=== PATIENT | male | born 2000 | race Caucasian/White ===

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

== ENCOUNTER 2019-04-04 22:45 | Inpatient (IN) | payer OTHER ==
[~2019-04-04] VITALS: Ht 172.7 cm; Wt 51.0 kg
[2019-04-04 22:50] VITALS: Ht 172.7 cm; Wt 51.0 kg
--- NOTE | 2019-04-04 23:39 | NUR ---
PT PRESENTS TO ED WITH C/O ABDOMINAL AND SHOULDER PAIN WITH N/V/C. PT STATES SX BEGAN 2 DAYS AGO. PT STATES THAT HE STARTS TO FEEL THIS WAY "WHEN IM ABOUT TO GO INTO DKA". PT STATES THAT HE FEELS NAUSEOUS AND HAS VOMITED X2 TODAY. PT HAS RLQ PAIN THAT IS NONTENDER. PT STATES HE HAS NOT HAD A BOWEL MOVEMENT IN 2 DAYS. PT HAS POSITIVE BOWEL SOUNDS IN ALL 4 QUADRANTS. PER MOM PT HAS INCREASED URINATION. PT LIPS APPEAR DRY HOWEVER OTHER SKIN SIGNS WNL. PT CONNECTED TO FULL CM AND PULSE OX MONITORS. PT AXO X4. PT SPEAKING IN CLEAR AND FULL SENTENCES. PT RESP E/U. NAD AT THIS TIME. FAMILY AT BEDSIDE
[2019-04-04 23:47] LABS: BASOPHIL % 0.4 % (0-2); PLATELET COUNT 270 x10^3mcL (130-400); RED CELL DISTRIBUTION WIDTH 13.2 % (11.5-14.5)
[2019-04-05] VITALS (9 sets, daily range): BP systolic 91–116; BP diastolic 47–72
--- NOTE | 2019-04-05 | NUR ---
PT REPORTS HE IS STARTING TO FEEL BETTER. PT AWARE WE NEED URINE AT THIS TIME AND STATES HE WILL GIVE IT WHEN HE CAN
[2019-04-05 00:14] LABS: ALKALINE PHOSPHATASE 134 U/L (46-116); ALT/SGPT 23 U/L (16-63); AST/SGOT 5 U/L (15-37); BILIRUBIN TOTAL 0.51 mg/dL (0.20-1.00); CALCIUM 8.8 mg/dL (8.5-10.1); CHLORIDE SERUM 95 mmol/L (98-107); CREATININE SERUM 1.3 mg/dL (0.7-1.3); GFR1 > 60 mL/min; GLUCOSE SERUM 335 mg/dL (74-106); POTASSIUM SERUM 4.3 mmol/L (3.5-5.1); SODIUM SERUM 134 mmol/L (136-145)
[2019-04-05 00:15] LABS: TOTAL PROTEIN, SERUM 8.5 g/dL (6.4-8.2)
[2019-04-05 00:16] LABS: CARBON DIOXIDE 9.9 mmol/L (21-32)
--- NOTE | 2019-04-05 00:37 | NUR ---
MD MADE AWARE OF NEW BLOOD SUGAR 240, REPORTS THAT HE WILL CHANGE ORDER TO 4 UNITS OF INSULIN.
--- NOTE | 2019-04-05 01:44 | NUR ---
RESIDENT AT BEDSIDE REQUESTING TO START INSULIN DRIP. RESIDENT INFORMED IT IS AN INCOMPLETE ORDER CALLED PHARMACY AND PHARMACY STATES THAT SHE NEEDS TO FIX ORDER AND PUT IN THE PROTOCOL MD AWARE. ATTEMPTING TO CHANGE ORDER TO START INSULIN DRIP
--- NOTE | 2019-04-05 01:56 | NUR ---
PER MD AMBROCIO DO NOT ADMINISTER INSULIN DRIP AT THIS TIME PER PT LATEST BLOOD SUGAR OF 159. NO NEW ORDERS AT THIS TIME
--- NOTE | 2019-04-05 02:10 | NUR ---
PT STILL AXO X4. PT SPEAKING IN CLEAR AND FULL SENTENCES. PT CONVERSING WITH GIRLFRIEND AT [facility]. PT DENIES ANY PAIN AT THIS TIME. WILL CONTINUE TO MONITOR
[2019-04-05 02:34] LABS: UA SPECIFIC GRAVITY >=1.030 (1.005-1.035); microscopic required? YES; urine erythrocyte TRACE (NEGATIVE)
--- NOTE | 2019-04-05 02:45 | NUR ---
RECIEVED REPORT FROM LIVE HANGER. NURSING UPDATES. POC DISCUSSED. AWAITING PT ARRIVAL.
--- NOTE | 2019-04-05 02:45 | NUR ---
REPORT GIVEN TO SHUKRI CONDE. ALL QUESTIONS AND CONCERNS ADDRESSED AT THIS TIME
--- NOTE | 2019-04-05 03:02 | NUR ---
PT ARRIVED FROM ED ACCOMPANIED BY RN AND TECH. SEE SHIFT ASSESSMENT FOR ASSESSMENT. TOA 0305. HR 106. O2 100. BP 116/65(81). TEMP 98.2. RR 16. A&OX4. SPEECH CLEAR AND APPROPRIATE. LUNG SOUNDS CLEAR ON RA. PULSES MOD BUE& BLE. CAP REFILL < 3 SEC. NO EDEMA NOTED. SINUS TACHY HR 106. SKIN C/D/I. PT VOIDS TO URINAL. BS ACTIVE X4. ABD SOFT AND FLAT. DENIES N/V. IV D5 1/2NS @ 200ML/HR W/ INSULIN @ 0.05KG/U/HR INFUSING. BS 222. DR DESIR NOTIFIED. GF @ BEDSIDE. NO S/S OF DISTRESS.
[2019-04-05 03:07] LABS: AMPHETAMINE QUAL UR NONE DETECTED (See below)
--- NOTE | 2019-04-05 03:18 | NUR ---
TALKED TO DR KARLEE ROGERS. NOTIFIED OF BS 222. NOTIFIED NOT TO START INSULIN DRIP AND WAIT FOR VBG RESULTS AND TO START N/S @ 100ML/HR.
--- NOTE | 2019-04-05 03:28 | NUR ---
NOTIFIED PER DR DESIR TO START DKA PROTOCOL. START INSULIN DRIP W/ D5 1/2 NS.
[2019-04-05 04:11] LABS: CALCIUM 8.3 mg/dL (8.5-10.1); CHLORIDE SERUM 99 mmol/L (98-107); CREATININE SERUM 1.1 mg/dL (0.7-1.3); GFR1 > 60 mL/min; GLUCOSE SERUM 289 mg/dL (74-106); MAGNESIUM 2.1 mg/dL (1.8-2.4); PHOSPHOROUS 3.3 mg/dL (2.5-4.9); POTASSIUM SERUM 4.7 mmol/L (3.5-5.1); SODIUM SERUM 134 mmol/L (136-145)
--- NOTE | 2019-04-05 04:18 | NUR ---
PT STATED N/V. ADMIN PRN ZOFRAN *(SEE MAR)*. PT TOLERATED WELL. WILL CONT TO MONITOR.
--- NOTE | 2019-04-05 05:34 | NUR ---
PT RESTING CALMLY IN BED. NO ACUTE CHANGES. PT STATES RELIEF FROM N/V.
--- NOTE | 2019-04-05 07:30 | NUR ---
Report received from ELTON Dias. patient arousable. denies complaints. resp even and nonlabored. sinus tach 101-105 bpm on monitor. breath sounds clear bilaterally. moves all extremities well. accucheck 198. left AC peripheral IV intact. noted D51/2 ns @ 100ml/hr. inuslin gtt at 2units/hr. pt tolerating well.
[2019-04-05 08:49] LABS: BASOPHIL % 0.2 % (0-2); PLATELET COUNT 251 x10^3mcL (130-400); RED CELL DISTRIBUTION WIDTH 13.3 % (11.5-14.5)
[2019-04-05 09:08] LABS: CALCIUM 7.9 mg/dL (8.5-10.1); CARBON DIOXIDE 12.2 mmol/L (21-32); CHLORIDE SERUM 104 mmol/L (98-107); CREATININE SERUM 1.1 mg/dL (0.7-1.3); GFR1 > 60 mL/min; GLUCOSE SERUM 186 mg/dL (74-106); MAGNESIUM 1.9 mg/dL (1.8-2.4); PHOSPHOROUS 2.1 mg/dL (2.5-4.9); POTASSIUM SERUM 3.7 mmol/L (3.5-5.1); SODIUM SERUM 135 mmol/L (136-145)
--- NOTE | 2019-04-05 09:30 | NUR ---
PATIENT ATE 100% OF BREAKFAST TRAY OFFERED, NO COMPLAINTS OF N/V/ DENIES PAIN OR DISCOMFORT. REPOSITIONS SELF IN BED.
[2019-04-05 12:04] LABS: CALCIUM 7.7 mg/dL (8.5-10.1); CARBON DIOXIDE 16.6 mmol/L (21-32); CHLORIDE SERUM 103 mmol/L (98-107); CREATININE SERUM 1.2 mg/dL (0.7-1.3); GFR1 > 60 mL/min; GLUCOSE SERUM 275 mg/dL (74-106); MAGNESIUM 1.9 mg/dL (1.8-2.4); PHOSPHOROUS 2.1 mg/dL (2.5-4.9); POTASSIUM SERUM 3.7 mmol/L (3.5-5.1); SODIUM SERUM 133 mmol/L (136-145)
--- NOTE | 2019-04-05 13:00 | NUR ---
PATIENT RESTING QUIETLY. ABLE TO TOLERATE OFFERED MEALS WITH NO COMPLAINTS OF N/V. AFEBRILE. ACCUCHECK 248. D51/2 NS HELD FOR 1 HOUR AND WILL REASSESS. NO ACUTE CHANGES OR COMPLAINTS NOTED. PATIENT SINUS RHYTHM/TACHY 95-107 WITH ACTIVITY.
[2019-04-05 16:31] LABS: CALCIUM 8.1 mg/dL (8.5-10.1); CARBON DIOXIDE 19.7 mmol/L (21-32); CHLORIDE SERUM 104 mmol/L (98-107); CREATININE SERUM 1.2 mg/dL (0.7-1.3); GFR1 > 60 mL/min; GLUCOSE SERUM 148 mg/dL (74-106); MAGNESIUM 1.8 mg/dL (1.8-2.4); PHOSPHOROUS 2.3 mg/dL (2.5-4.9); POTASSIUM SERUM 3.2 mmol/L (3.5-5.1); SODIUM SERUM 136 mmol/L (136-145)
--- NOTE | 2019-04-05 16:48 | NUR ---
D5 1/2 NS CHANGED TO 150ML/HR. ACCUCHECK 131. INSULIN GTT MAINTAINED AT 2.5 U/HR. PATIENT ALERT ORIENTED X 4. DENIES COMPLAINTS. ANION GAP CALCULATED 12.3.
--- NOTE | 2019-04-05 17:24 | NUR ---
PATIENT K+ 3.2, SINUS RHYTHM ON MONITOR. ASYMPTOMATIC. PAGED TO MAKE AWARE.
--- NOTE | 2019-04-05 19:30 | NUR ---
RECEIEVED REPORT FROM ELTON MORAN. NURSING UPDATES POC DISCUSSED. SEE SHIFT ASSESSMENT FOR ASSESSMENT.
--- NOTE | 2019-04-05 19:35 | NUR ---
REPORT GIVEN TO CASHIER TUBE ROOM WAREHOUSE LABORER. ANION 12.4. ACCUCHECK 157. D51/2 NS INFUSING AT 150ML/HR AND INSULIN GTT AT 2.5UNITS/HR. ALL QUESTIONS CONCERNS ADDRESSED.
--- NOTE | 2019-04-05 20:00 | NUR ---
DYE STAND LOADER @ BEDSIDE FOR LABS PER DKA PROTOCOL.
[2019-04-05 20:15] LABS: CALCIUM 8.1 mg/dL (8.5-10.1); CARBON DIOXIDE 21.9 mmol/L (21-32); CHLORIDE SERUM 103 mmol/L (98-107); GFR1 > 60 mL/min; GLUCOSE SERUM 155 mg/dL (74-106); MAGNESIUM 1.8 mg/dL (1.8-2.4); PHOSPHOROUS 2.3 mg/dL (2.5-4.9); POTASSIUM SERUM 3.4 mmol/L (3.5-5.1); SODIUM SERUM 135 mmol/L (136-145)
--- NOTE | 2019-04-05 23:00 | NUR ---
PT NOTED HUNGRY. CCHO DIET TOLERATED SANDWICH AND JELLO. NO S/S OF DISTRESS SEE CHART FOR BS.
--- NOTE | 2019-04-06 | NUR ---
FISHER EEL @ BEDSIDE FOR LAB DRAW PER DKA PROTOCOL.
--- NOTE | 2019-04-06 00:11 | NUR ---
LABTECH @ BEDSIDE FOR MIDNIGHT LABS FOR GAP PER DKA PROTOCOL.
[2019-04-06 00:25] LABS: CALCIUM 7.7 mg/dL (8.5-10.1); CARBON DIOXIDE 21.2 mmol/L (21-32); CHLORIDE SERUM 107 mmol/L (98-107); CREATININE SERUM 0.8 mg/dL (0.7-1.3); GFR1 > 60 mL/min; GLUCOSE SERUM 117 mg/dL (74-106); MAGNESIUM 1.7 mg/dL (1.8-2.4); PHOSPHOROUS 2.1 mg/dL (2.5-4.9); POTASSIUM SERUM 3.1 mmol/L (3.5-5.1); SODIUM SERUM 138 mmol/L (136-145)
--- NOTE | 2019-04-06 02:00 | NUR ---
PT W/ 2 CONSECUTIVE GAPS < 12. NOTIFIED DR MOSS. DKA PROTOCOL INITIATED. TITRATED OFF INSULIN DRIP AND D5 1/2 NS. N/S NOT TITRATED ON PER DR MOSS FOR PT TOLERATING PO WATER. WILL CONT TO MONITOR.
--- NOTE | 2019-04-06 02:45 | NUR ---
RANDOMLY CHECKED BS PER PREVIOUS BS TRENDING DOWN. BS 175. PT TOLERATING WELL. NO S/S OF HYPO/HYPERGLYCEMIA.
[2019-04-06 03:00] VITALS: BP 10/69
[2019-04-06 05:27] LABS: CALCIUM 7.8 mg/dL (8.5-10.1); CARBON DIOXIDE 19.1 mmol/L (21-32); CHLORIDE SERUM 106 mmol/L (98-107); CREATININE SERUM 0.8 mg/dL (0.7-1.3); GFR1 > 60 mL/min; GLUCOSE SERUM 211 mg/dL (74-106); MAGNESIUM 1.9 mg/dL (1.8-2.4); POTASSIUM SERUM 3.7 mmol/L (3.5-5.1); SODIUM SERUM 138 mmol/L (136-145)
[2019-04-06 05:40] LABS: BASOPHIL % 0.4 % (0-2); PLATELET COUNT 208 x10^3mcL (130-400); RED CELL DISTRIBUTION WIDTH 13.3 % (11.5-14.5)
--- NOTE | 2019-04-06 07:11 | NUR ---
RECEIVED REPORT FROM SHUKRI CONDE. PATIENT SLEEPING COMFORTABLY IN BED WITH ALL NEEDS MET. SALINE LOCK TO LFA IS PATENT AND INTACT. NO REDNESS OR PAIN. PT ON ROOM AIR. NO DISTRESS NOTED. ALL QUESTIONS AND CONCERNS ADDRESSED.
[2019-04-06 08:30] VITALS: BP 110/70
--- NOTE | 2019-04-06 09:13 | NUR ---
NOTICED POOLED LIQUID IN CORNER NEAR DOOR. PATIENT URINAL MUST HAVE SPILLED OVERNIGHT. SOAKED UP ALL LIQUID AND PAGED FOR EVS TO RUST.
--- NOTE | 2019-04-06 11:18 | NUR ---
DR LOBO AT BEDSIDE TO SEE AND ASSESS PATIENT.
--- NOTE | 2019-04-06 11:58 | NUR ---
IN TO SEE PATIENT AND CHECK BLOOD GLUCOSE. GLUCOSE IS 340. 12 UNITS REGULAR INSULIN ADMINISTERED PER SS. URINAL EMPTIED OF 900 ML CLEAR YELLOW URINE.
[2019-04-06 12:13] VITALS: BP 108/69
--- NOTE | 2019-04-06 13:24 | NUR ---
REPORT GIVEN TO ANGEL CONDE. ALL QUESTIONS AND CONCERNS ADDRESSED. ALL CARES ENDORSED. PT TO TRANSFER TO ROOM 232-A VIA WHEELCHAIR.
[2019-04-06 13:58] VITALS: BP 114/68
--- NOTE | 2019-04-06 14:19 | NUR ---
AT 1350 - RECEIVED PATIENT TRANSFER FROM ICU. PATIENT WAS ADMITTED WITH DKA. SETTLED IN BED, ORIENTED TO SURROUNDINGS AND PLACED ON CARDIAC MONITORING TELE # 17. PATIENT IS AWAKE, ALERT AND ORIENTED X 4. RESPIRATIONS REGULAR, NO SOB NOTED. IV SALINE LOCKED. MONITOR SHOWING SINUS RHYHTM; RATE 92. VS WNL. AT 1415 - PATIENT PROVIDED WITH SNACK. RESTING QUIETLY. DR VILLAFUERTE AT BEDSIDE, PLANNING TO DISCHARGE PATIENT TO HOME.
[2019-04-06 14:26] VITALS: BP 114/68
[2019-04-06] MEDS ORDERED: LANTI SQ (14:31)
[2019-04-06] MEDS ORDERED: HUMULIN R100 U/1 M1 SC (14:32)
[2019-04-06] MEDS ORDERED: HUMULIN R100 U/1 M1 SQ ×2 (14:34→14:35)
--- NOTE | 2019-04-06 15:17 | NUR ---
PRINTED DISCHARGE INSTRUCTIONS GIVEN AND EXPLAINED TO PATIENT. IV CATHETER REMOVED INTACT. PREPARED FOR DISCHARGE.
--- NOTE | 2019-04-06 15:28 | NUR ---
PATIENT WAS TAKEN OFF CARDIAC MONTIORING. DISCHARGED HOME WITH FAMILY. TAKEN TO CAR, AMBULATORY BY NURSE.
--- NOTE | 2019-04-06 15:33 | NUR ---
ADDITIONAL NOTE: PATIENT'S DISCHARGE INSULIN ORDER WAS FOR 10 UNITS LANTUS QHS. PATIENT REPROTED THAT HE TAKES 23 UNITS AT NIGHT. SPOKE WITH DR VILLAFUERTE WHO WENT AND SAW PATIENT AND CLARIFIED THAT PATIENT SHOULD CONTINUE TAKING 23 UNTIS AT NIGHT PRIOR TO ADMISSION.
[2019-04-07] MEDS ORDERED: HUMULIN R100 U/1 M1 SQ (11:25)
== END 2019-04-06 15:23 | disposition home or self-care (01) | DRG 420 ==
LOC: ED 22:45 → IC 04-05 00:25 → DU 04-06 13:43
PROVIDERS: Emergency Medicine; ADMIT General Practice
DX: E10.10 Type 1 diabetes mellitus with ketoacidosis without coma (principal); E83.51 Hypocalcemia; E87.1 Hypo-osmolality and hyponatremia; R00.0 Tachycardia, unspecified; Z79.4 Long term (current) use of insulin; Z68.1 Body mass index [BMI] 19.9 or less, adult
CPT/HCPCS: 82962; 87804; G0378; J1815; J2405; J7030; Q0092

== ENCOUNTER 2019-04-12 16:15 | Inpatient (IN) | payer OTHER ==
[~2019-04-12] VITALS: Ht 172.7 cm; Wt 51.9 kg
[~2019-04-12 16:15] MED LIST: HUMULIN R100 U/1 M1 SC; HUMULIN R100 U/1 M1 SQ; LANTI SQ
[2019-04-12 16:21] VITALS: Ht 172.7 cm; Wt 51.9 kg
--- NOTE | 2019-04-12 16:31 | NUR ---
PT BIB FAMILY WITH CO GEN ABD PAIN AND N/V. PT WAS HERE 03/04/19 AND WAS IN ICU FOR 3 DAYS AND DISCHARGED ON 03/06/19. PT SISTER STATES THAT ON 03/08/19 PT THEN BEGAN TO HAVE SAME SYMPTOMS WITH VOMTIING AND SISTER WAS TRYING TO BRING PT INTO HOSPITAL BUT PT WAS REFUSING. BLOOD SUGAR READING HI WHEN CHECKED TWICE. SISTER STATES THAT PT DOES CHECK BLOOD SUGARS AT HOME. PT HAS HX OF DKA. PT IS HOOKED UP TO FULL MONITORS, SIDE RAILS UP, 2 IVS BEING STARTED BY ELTON PORTILLO AND DANILO CONDE. WILL CONTINUE TO MONITOR.
--- NOTE | 2019-04-12 16:52 | NUR ---
PT GIVEN ICE CHIPS PER OK BY
[2019-04-12] MEDS ORDERED: LANTUS SOLOS100 U/M1 SQ (16:54)
[2019-04-12] MEDS ORDERED: HUMI SC (16:56)
--- NOTE | 2019-04-12 17:51 | NUR ---
PT STATES HES STARTING TO FEEL A LOT BETTER. STATES ABD PAIN IS SLOWLY GOING AWAY. PT CONTINUES TO EAT ICE CHIPS. FLUIDS RUNNING WITHNO INCIDENCE. FAMILY REMAINS AT BEDSIDE. PT HOOKED UP TO FULL MONITORS, SIDE RAILS UP, WILL CONTINUE TO MONITOR.
[2019-04-12 18:01] LABS: PLATELET COUNT 330 x10^3mcL (130-400); RED CELL DISTRIBUTION WIDTH 13.6 % (11.5-14.5)
[2019-04-12 18:07] LABS: T3 TOTAL 0.46 ng/mL
[2019-04-12 18:20] LABS: CK-MB 1.3 ng/mL (0-3.6); FREE T4 0.87 ng/dL (0.76-1.46); T4(THYROXINE) 7.1 ug/dL (4.7-13.3)
[2019-04-12 18:23] LABS: ALBUMIN 3.8 g/dL (3.4-5.0); ALKALINE PHOSPHATASE 183 U/L (46-116); ALT/SGPT 461 U/L (16-63); AST/SGOT 20 U/L (15-37); BILIRUBIN TOTAL 0.44 mg/dL (0.20-1.00); CALCIUM 8.8 mg/dL (8.5-10.1); CARBON DIOXIDE 11.4 mmol/L (21-32); CHLORIDE SERUM 99 mmol/L (98-107); CREATININE SERUM 1.6 mg/dL (0.7-1.3); GFR1 59 mL/min; POTASSIUM SERUM 4.6 mmol/L (3.5-5.1); SODIUM SERUM 140 mmol/L (136-145)
[2019-04-12 18:26] LABS: GLUCOSE SERUM 506 mg/dL (74-106); TOTAL PROTEIN, SERUM 8.6 g/dL (6.4-8.2)
[2019-04-12 18:36] LABS: C REACTIVE PROTEIN < 0.2 mg/dL (<=0.9)
--- NOTE | 2019-04-12 19:00 | NUR ---
PT STILL UNABLE TO PROVIDE URINE SAMPLE. URINAL AT BEDSIDE. DR TRAORE MADE AWARE
[2019-04-12 19:01] LABS: MONOCYTE 2 % (0-7); SEGMENTED NEUTROPHILS 80 % (37-75)
[2019-04-12 19:02] LABS: rbc morphology (normal/abnorm) NORMAL (NORMAL)
[2019-04-12 19:03] LABS: PLATELET MORPHOLOGY PLATELETS NORMAL
[2019-04-12 19:06] LABS: ERYTHROCYTE SED RATE 12 mm/hr (0-15)
--- NOTE | 2019-04-12 19:28 | NUR ---
REPORT GIVEN TO MYLES CONDE IN ICU FOR FURTHER CARE OF PT
--- NOTE | 2019-04-12 19:40 | NUR ---
RECEIVED PT FROM ER VIA [place]A ACCOMPANIED BY RN AND EMT. PT ABLE TO TRANSFER SELF INDEPENDENTLY FROM THE GURNEY ONTO THE BED. PT CONNECTED TO FULL CARIAC MONITOR, VITALS READING: HR 82, NIBP 120/75 MAP 92, RR 15, SPO2 100%. PT IS A/OX4. SPEECH IS CLEAR. ABLE TO MAKE NEEDS KNOWN/FOLLOW COMMANDS. BREATHING IS E/U ON RA. LUNGS SOUND CLEAR BILAT. SYMMETRICAL CHEST EXPANSION NOTED. S1/S2 HEART SOUNDS AUSCULTATED. CHEST WALL EQUAL AND SYMMETRICAL. DENIES ANY CP. PALPABLE PULSES X4 EXTREMITIES. SKIN IS WARM AND DRY. NO EDEMA NOTED. CAP REFILL < 3 SECS. LH AND RH IV'S INTACT/SECURED, NO S/S OF INFILTRATION NOTED. RECEIVED PT WITH INSULIN GTT INFUSING @ 5 UNITS/ HR, INSULIN GTT CHANGED TO 0.1 UNITS/KG/HR PER DKA PROTOCOL. NS INFUSING @ 200 ML/HR. PT IS AMBULATORY. ACTIVE FULL ROM X4 EXTREMITIES. ABD IS SOFT, FLAT, NONTENDER TO PALPATION. BOWEL SOUNDS ACTIVE X4 QUADRANTS. DENIES ANY ABD PAIN AT THIS TIME. C/O NAUSEA. PT VOIDS FREELY VIA URINAL WITH YELLOW COLORED URINE NOTED. SKIN IS INTACT. FAMILY AT BEDSIDE. BED IN LOW POSITION. CALL LIGHT IN REACH. WILL CONT TO MONITOR
--- NOTE | 2019-04-12 20:00 | NUR ---
PT C/O NAUSEA, PT MEDICATED WITH ZOFRAN 4 MG IVP PER EMAR. WILL CONT TO MONITOR.
[2019-04-12 20:11] VITALS: BP 120/75
[2019-04-12 20:40] LABS: CALCIUM 7.6 mg/dL (8.5-10.1); CARBON DIOXIDE 12.8 mmol/L (21-32); CHLORIDE SERUM 108 mmol/L (98-107); CREATININE SERUM 1.3 mg/dL (0.7-1.3); GFR1 > 60 mL/min; GLUCOSE SERUM 263 mg/dL (74-106); POTASSIUM SERUM 4.3 mmol/L (3.5-5.1); SODIUM SERUM 144 mmol/L (136-145)
[2019-04-12 20:43] LABS: MAGNESIUM 1.9 mg/dL (1.8-2.4); PHOSPHOROUS 2.9 mg/dL (2.5-4.9)
--- NOTE | 2019-04-12 21:05 | NUR ---
DR. AMBROCIO MADE AWARE OF PT'S CURRENT BS OF 178. PER DR. AMBROCIO, WILL ORDER D51/2NS
--- NOTE | 2019-04-12 21:17 | NUR ---
D5 1/2NS INITIATED AT THIS TIME PER DKA PROTOCOL @ 150 ML/HR. NS INFUSION TURNED OFF. INSULIN GTT TITRATED TO 0.05 UNITS/KG/HR PER PROTOCOL.
[2019-04-12 21:22] LABS: UA SPECIFIC GRAVITY 1.025 (1.005-1.035); microscopic required? YES; urine erythrocyte TRACE (NEGATIVE)
[2019-04-12 21:36] LABS: AMPHETAMINE QUAL UR NONE DETECTED (See below)
[2019-04-12 23:05] VITALS: BP 119/62
[2019-04-13 00:32] LABS: ALKALINE PHOSPHATASE 128 U/L (46-116); ALT/SGPT 312 U/L (16-63); AST/SGOT 23 U/L (15-37); BILIRUBIN TOTAL 0.4 mg/dL (0.20-1.00); CALCIUM 7.6 mg/dL (8.5-10.1); CARBON DIOXIDE 20.2 mmol/L (21-32); CHLORIDE SERUM 109 mmol/L (98-107); CREATININE SERUM 1.1 mg/dL (0.7-1.3); GFR1 > 60 mL/min; GLUCOSE SERUM 170 mg/dL (74-106); MAGNESIUM 1.8 mg/dL (1.8-2.4); PHOSPHOROUS 2.3 mg/dL (2.5-4.9); SODIUM SERUM 143 mmol/L (136-145); TOTAL PROTEIN, SERUM 6.5 g/dL (6.4-8.2)
[2019-04-13 00:38] LABS: ALBUMIN 2.8 g/dL (3.4-5.0)
[2019-04-13 03:05] VITALS: BP 107/62
--- NOTE | 2019-04-13 03:54 | NUR ---
BS 148. D5 1/2 NS TITRATED TO 200 ML/HR
--- NOTE | 2019-04-13 04:46 | NUR ---
BS 123. D5 1/2NS TITRATED TO 250 ML/HR PER PROTOCOL
[2019-04-13 05:45] LABS: CALCIUM 8.1 mg/dL (8.5-10.1); CARBON DIOXIDE 21.7 mmol/L (21-32); CHLORIDE SERUM 107 mmol/L (98-107); CREATININE SERUM 1.1 mg/dL (0.7-1.3); GFR1 > 60 mL/min; GLUCOSE SERUM 146 mg/dL (74-106); MAGNESIUM 1.9 mg/dL (1.8-2.4); PHOSPHOROUS 2.1 mg/dL (2.5-4.9); POTASSIUM SERUM 3.2 mmol/L (3.5-5.1); SODIUM SERUM 139 mmol/L (136-145)
--- NOTE | 2019-04-13 06:51 | NUR ---
BS 199. D5 1/2NS TITRATED TO 200 ML/HR
--- NOTE | 2019-04-13 07:05 | NUR ---
REPORT GIVEN TO CARYL CONDE FOR CONTINUITY OF CARE. ALL QUESTIONS/CONCERNS ADDRESSED. ENDORSING ALL CARE
--- NOTE | 2019-04-13 07:15 | NUR ---
REPORT RECEIVED FROM MYLES CONDE. ALL CARE ASSUMED AT THIS TIME.
[2019-04-13 07:50] VITALS: BP 100/61
[2019-04-13 08:39] LABS: BASOPHIL % 0.3 % (0-2); PLATELET COUNT 240 x10^3mcL (130-400); RED CELL DISTRIBUTION WIDTH 13.2 % (11.5-14.5)
[2019-04-13 08:42] LABS: CARBON DIOXIDE 23.6 mmol/L (21-32); CHLORIDE SERUM 107 mmol/L (98-107); CREATININE SERUM 1.2 mg/dL (0.7-1.3); GFR1 > 60 mL/min; GLUCOSE SERUM 139 mg/dL (74-106); MAGNESIUM 1.7 mg/dL (1.8-2.4); PHOSPHOROUS 2.2 mg/dL (2.5-4.9); SODIUM SERUM 139 mmol/L (136-145)
--- NOTE | 2019-04-13 08:45 | NUR ---
GOING WITH SUPERVISORY CIVIL ENGINEER AND PT FOR ABDOMINAL CT AT THIS TIME. VSS BEFORE LEAVING, PT DENIES N/V, ABLE TO AMBULATE TO WHEELCHAIR WITH MIN ASSIST.
--- NOTE | 2019-04-13 08:57 | NUR ---
BACK FROM CT WITH PT AT THIS TIME. HE TOLERATED CT WELL, DENIES DIZZINESS, N/V, OR OVERALL DISCOMFORT. VITAL SIGN MONITORING EQUIPMENT RECONNECTED AT THIS TIME. WILL CONTINUE TO MONITOR PT.
--- NOTE | 2019-04-13 09:00 | NUR ---
ANION GAP 11, DR. NOE AWARE.
[2019-04-13 09:18] LABS: PATH REVIEW for HEMA NO
--- NOTE | 2019-04-13 10:04 | NUR ---
US TECH AT BEDSIDE FOR ABDOMINAL US. PT CALM, COOPERATIVE. DENIES N/V.
--- NOTE | 2019-04-13 10:30 | NUR ---
DR. LEONARD, DR. NOE, PRIMARY RN AT BEDSIDE FOR ROUNDS. UPDATES PROVIDED, QUESTIONS ANSWERED. WILL UPDATE DR. NOE WITH NEXT ANION GAP RESULT.
[2019-04-13 11:20] VITALS: BP 113/76
--- NOTE | 2019-04-13 12:10 | NUR ---
ANION GAP 11.6. CLOSED X2. DR. KUSUM OLSON.
[2019-04-13 12:28] LABS: CALCIUM 7.8 mg/dL (8.5-10.1); CARBON DIOXIDE 21.4 mmol/L (21-32); CHLORIDE SERUM 105 mmol/L (98-107); CREATININE SERUM 1.1 mg/dL (0.7-1.3); GFR1 > 60 mL/min; GLUCOSE SERUM 245 mg/dL (74-106); MAGNESIUM 1.5 mg/dL (1.8-2.4); PHOSPHOROUS 2.6 mg/dL (2.5-4.9); POTASSIUM SERUM 3.4 mmol/L (3.5-5.1); SODIUM SERUM 136 mmol/L (136-145)
--- NOTE | 2019-04-13 13:21 | NUR ---
RN OBSERVED PT SELF ADMINISTER LANTUS PROPERLY AT THIS TIME.
--- NOTE | 2019-04-13 14:21 | NUR ---
INSULIN GTT STOPPED AT THIS TIME.
--- NOTE | 2019-04-13 14:43 | NUR ---
REPORT GIVEN TO ANJALI CONDE. PT AOX4, VITAL SIGNS STABLE, DENIES PAIN, DENIES N/V/D. ALL CARES ENDORSED, QUESTIONS ANSWERED. WILL TRANSFER PT AT THIS TIME.
--- NOTE | 2019-04-13 15:10 | NUR ---
REC ICU TRANSFER FORM CARYL RN, PT AA/O X4/ BREATHING EVEN AND UNLABORED ON RA, NO ACUTE RESP DISTRESS OR SOB NOTED. VS: STABLE/ DENIES ANY CP OR PRESSURE. TELE 2 SR HR 83 NOTED. BOWEL SOUNDS ACTIVE IN ALL FOUR QUADS, VOIDS AMB. SKIN INTACT/WARM TO TOUCH. DENIES ANY N/V OR DISCOMFORT. IV TO THE L HAND AND RHAND INFUSING NS AT 75ML/HR, NO REDNESS OR SWELLING NOTED, FAMILY AT BEDSIDE/ WILL CONTINUE TO MONITOR.
[2019-04-13 15:22] VITALS: BP 105/63
[2019-04-13 16:06] LABS: CALCIUM 7.8 mg/dL (8.5-10.1); CARBON DIOXIDE 20.7 mmol/L (21-32); CHLORIDE SERUM 101 mmol/L (98-107); CREATININE SERUM 1.1 mg/dL (0.7-1.3); GFR1 > 60 mL/min; GLUCOSE SERUM 396 mg/dL (74-106); MAGNESIUM 1.7 mg/dL (1.8-2.4); PHOSPHOROUS 2.9 mg/dL (2.5-4.9); POTASSIUM SERUM 4.3 mmol/L (3.5-5.1); SODIUM SERUM 133 mmol/L (136-145)
--- NOTE | 2019-04-13 17:54 | NUR ---
PT SITTING UP IN BED HAVING HIS DINNER, DENIES ANY ABD PAIN OR DISCOMFORT. DENIES ANY N/V AT THIS TIME. IV TO THE R HAND INTACT AND PATENT/ INFUSING AT 75ML/HR NO REDNESS OR SWELLING NOTED. WILL CONTINUE TO MONITOR.
[2019-04-13 18:11] VITALS: BP 104/69
--- NOTE | 2019-04-13 18:20 | NUR ---
NO ACUTE CHANGES WILL ENDORSE TO INCOMING RN.
[2019-04-13 19:05] VITALS: BP 101/60
--- NOTE | 2019-04-13 19:05 | NUR ---
RECEIVED PT ON HIS PHONE TEXTING.DENIES ANY PAIN OR DISCOMFORT AT THIS TIME.NO S/S OF HYPO/HYPERGLYCEMIA NOTED.DENIES CHESTPAIN.BP 101/60 MMHG,HR 93.WILL CONTINUE TO MONITOR.
--- NOTE | 2019-04-13 19:56 | NUR ---
PT REFUSED BLOOD DRAW TONIGHT. MADE AWARE OF Q4H BLOOD DRAW ORDERS FROM ICU AND WILL DISCONTINUE.
--- NOTE | 2019-04-14 00:50 | NUR ---
RECEIVED REPORT FROM KATARINA CONDE. WILL RESUME CARE OF PT. PT IS SLEEPING AT THIS TIME. BREATHING IS EVEN AND UNLABORED. CALL LIGHT WITHIN REACH. BED IN LOWEST POSITION. WILL CONTINUE TO MONITOR.
--- NOTE | 2019-04-14 04:15 | NUR ---
PT RBS IS 66. RISS NO INSULIN COVERAGE NEEDED. PROVIDED PT WITH SNACKS AND JUICE. WILL RECHECK RBS AND WILL CONTINUE TO MONITOR.
--- NOTE | 2019-04-14 05:54 | NUR ---
PT SLEPT THROUGHOUT THE NIGHT. PT COMPLIED WITH NURSING CARE THROUGHOUT THE SHIFT. PT RBS AT 0400 WAS 66. PT WAS ASYMPTOMATIC AND STATES HE IS OKAY. PT WAS PROVIDED WITH JUICE AND SNACKS. ALL NEEDS AND CONCERNS ADDRESSED. ALL SAFETY AND COMFORT MEASURES MAINTAINED. CALL LIGHT WITHIN REACH. BED IN LOWEST POSITION. SIDE RAILS X2 UP. WILL CONTINUE TO MONITOR. WILL ENDORSE CARE TO DAY SHIFT NURSE.
[2019-04-14 05:55] VITALS: BP 131/73
--- NOTE | 2019-04-14 06:14 | NUR ---
RECHECKED PT RBS AFTER SNACKS AND JUICE. CURRENT RBS IS 126. NO COVERAGE NEEDED. WILL CONTINUE TO MONITOR.
[2019-04-14 06:30] LABS: BASOPHIL % 0.4 % (0-2); PLATELET COUNT 211 x10^3mcL (130-400); RED CELL DISTRIBUTION WIDTH 13.7 % (11.5-14.5)
[2019-04-14 06:46] LABS: CALCIUM 7.6 mg/dL (8.5-10.1); CARBON DIOXIDE 24.7 mmol/L (21-32); CHLORIDE SERUM 106 mmol/L (98-107); CREATININE SERUM 0.8 mg/dL (0.7-1.3); GFR1 > 60 mL/min; GLUCOSE SERUM 115 mg/dL (74-106); MAGNESIUM 1.9 mg/dL (1.8-2.4); PHOSPHOROUS 3.7 mg/dL (2.5-4.9); POTASSIUM SERUM 3.3 mmol/L (3.5-5.1); SODIUM SERUM 143 mmol/L (136-145)
[2019-04-14 08:44] VITALS: BP 108/69
[2019-04-14 10:17] VITALS: BP 108/69
[2019-04-14 11:56] VITALS: BP 114/70
--- NOTE | 2019-04-14 12:20 | NUR ---
GAVE ALL PAPERWORK FOR THE DISCHARGE AND REMOVED THE IV AND TELE MONITOR. PATIENT IS WAITING FOR LUNCH PRIOR TO GOING HOME. MOTHER OF PATIENT AT BEDSIDE AND SUPPORTIVE WITH CARE.
== END 2019-04-14 12:46 | disposition home or self-care (01) | DRG 420 ==
LOC: ED 16:15 → IC 18:47 → DU 18:47 → IC 19:54 → DU 04-13 14:55
PROVIDERS: Specialist; ADMIT Internal Medicine
DX: E10.10 Type 1 diabetes mellitus with ketoacidosis without coma (principal); N17.0 Acute kidney failure with tubular necrosis; R16.0 Hepatomegaly, not elsewhere classified; R74.0 Nonspecific elevation of levels of transaminase and lactic acid dehydrogenase [LDH]; D72.828 Other elevated white blood cell count; Z79.4 Long term (current) use of insulin; Z68.1 Body mass index [BMI] 19.9 or less, adult
CPT/HCPCS: 36600; 82962; 84439; 87804; 90658; G0378; J1815; J1956; J2405; J7030; Q0092

== ENCOUNTER 2019-12-25 14:36 | Inpatient (IN) | payer OTHER ==
[~2019-12-25] VITALS: Ht 172.7 cm; Wt 48.6 kg
[~2019-12-25 14:36] MED LIST changes: +HUMI SC; +LANTUS SOLOS100 U/M1 SQ
[2019-12-25 14:41] VITALS: Ht 172.7 cm; Wt 48.6 kg
[2019-12-25 16:06] LABS: BASOPHIL % 0.5 % (0-2); RED CELL DISTRIBUTION WIDTH 13.9 % (11.5-14.5)
[2019-12-25 16:07] LABS: PLATELET COUNT 468 x10^3mcL (130-400)
[2019-12-25 16:39] LABS: ALKALINE PHOSPHATASE 434 U/L (46-116); AST/SGOT 173 U/L (15-37); BILIRUBIN TOTAL 0.8 mg/dL (0.20-1.00); CALCIUM 8.5 mg/dL (8.5-10.1); CARBON DIOXIDE 11.5 mmol/L (21-32); CHLORIDE SERUM 92 mmol/L (98-107); CREATININE SERUM 1.3 mg/dL (0.7-1.3); GFR1 > 60 mL/min; POTASSIUM SERUM 4.7 mmol/L (3.5-5.1); SODIUM SERUM 128 mmol/L (136-145); TOTAL PROTEIN, SERUM 7.6 g/dL (6.4-8.2)
[2019-12-25 16:40] LABS: ALBUMIN 2.8 g/dL (3.4-5.0)
[2019-12-25 17:05] LABS: GLUCOSE SERUM 530 mg/dL (74-106)
[2019-12-25 17:27] LABS: microscopic required? YES; urine erythrocyte TRACE (NEGATIVE)
[2019-12-25 17:52] LABS: LIPASE 78 IU/L (73-393)
[2019-12-25 17:55] LABS: ALT/SGPT 1143 U/L (16-63); AMYLASE 116 U/L (25-115)
--- NOTE | 2019-12-25 19:14 | NUR ---
REPORT AND PT REC'D. CARE ASSUMED
--- NOTE | 2019-12-25 19:35 | NUR ---
PT ASSESSED, PT AAOX4 SPEAKING IN FULL SENTENCES. PT STATES HE HAS NOT BEEN ABLE TO EAT BECAUSE EVERYTHING HE EATS HE VOMITS. PT REPORTS STOMACH DISCOMFORT.
[2019-12-25 20:11] LABS: CALCIUM 8.3 mg/dL (8.5-10.1); CARBON DIOXIDE 11.7 mmol/L (21-32); CHLORIDE SERUM 98 mmol/L (98-107); CREATININE SERUM 1.3 mg/dL (0.7-1.3); GFR1 > 60 mL/min; GLUCOSE SERUM 403 mg/dL (74-106); MAGNESIUM 2.2 mg/dL (1.8-2.4); PHOSPHOROUS 3.2 mg/dL (2.5-4.9); POTASSIUM SERUM 4.4 mmol/L (3.5-5.1); SODIUM SERUM 132 mmol/L (136-145)
--- NOTE | 2019-12-25 20:30 | NUR ---
CALL PLACED TO DR GONZÁLES @ [phone] REGARDING ELEVATED GLUCOSE DESPITE RECEIVING 10 UNITS OF REGULAR INSULIN AT 1900. ORDERS FOR REGULAR INSULIN 15 UNITS REC'D DISCUSSED NEED FOR SLIDING SCALE OR INSULIN DRIP FOR PT. WILL PLACE ORDERS
--- NOTE | 2019-12-25 21:00 | NUR ---
REPEAT GLUCOSE 435 HIGHER THAN PREVIOUS RESULTS DESPITE HAVING REC'D REG INSULIN 15 UNITS. NOTED ORDERS FOR INSULIN DRIP ON CHART WILL CONFIRM WITH UNIT STAFF
--- NOTE | 2019-12-25 21:20 | NUR ---
CONFIRMED ORDER IF FOR REGULAR INSULIN. CALL PLACED TO PHARMACY FOR INSULIN DRIP. PHARM STATES THEY HAD NOT MIXED IT YET THEY WERE LOOKING TO CLARIFY REG INSULIN SC ORDERS. CONFIRMED WITH PHARMACY THAT REG INSULIN SC DOSES WERE GIVEN BUT GLUCOSE REMAINS ELEVATED WHICH IS WHY MD WANTS AN INSULIN DRIP. PHARMACY TO MIX AND TRANSPORT TO ED
[2019-12-25 21:26] LABS: AMPHETAMINE QUAL UR NONE DETECTED (See below)
[2019-12-25] MEDS ORDERED: LANTI SQ (21:48)
[2019-12-25] MEDS ORDERED: NOVI SQ (21:49)
--- NOTE | 2019-12-25 21:50 | NUR ---
PATIENT ASKS WHEN HE WILL BE GOING TO HIS ADMITTED BED. INFORMED PATIENT THAT A BED WAS JUST POSTED FOR HIM. PT REPORTS NO GLASSES, HEARING AIDS OR DENTURES. PATIENT IS IN POSSESSION OF HIS CELL PHONE. PT AWAKE AND ALERT, RESPONDING APPROPRIATELY WITH NORMAL RESPIRATIONS.
--- NOTE | 2019-12-25 22:00 | NUR ---
INSULIN DRIP STARTED @ 5UNITS/HR PER PROTOCOL WITH 2 RNS. PT REMAINS AAOX4 SPEAKING IN FULL SENTENCES CALM AND COOPERATIVE IN NAD
--- NOTE | 2019-12-25 22:18 | NUR ---
REPORT CALLED TO ICU SPOKE WITH MANISH CONDE
[2019-12-25 22:30] VITALS: BP 122/89
--- NOTE | 2019-12-25 22:30 | NUR ---
RECEIVED PT FROM ER, RECEIVED REPORT FROM STELLA LA RN. PT ACCOMPANIED WITH XIAO RN AND MARIPOSA RN AND CASSANDRA EMT, TRANSFERRED TO ICU BED 9 VIA GUERNEY. PT REMOVED FROM ER MONITOR AND ATTACHED TO ICU BED 9 TENANT RELATIONS COORDINATOR AND CONITNUOUS PULSE OXIMETRY. VITALS NIBP 122/89 (100), HR 107, RR 17, 02 100%, TEMP 97.6F, WEIGHT 48.5 KG. RECEIVED PT AOX4, ABLE TO RESPOND TO COMMANDS, MAKE NEEDS KNOWN, CLEAR SPEECH. NO ACUTE DISTRESS, LUNG SOUNDS CTAB, CHEST RISE/FALL SYMMETRIC, E/U BREATHING, ON ROOM AIR. PT DENIES N/V WHEN ASKED, ABD SOFT/FLAT. PT REPORTS FEELING BETTER THAN HE WAS IN ER. PULSES MODERATE X4 EXTREMITIES, CAP REFILL <3 SEC, PIV TO RFA 20G, LAC 20G, PORTS PATENT, DRESSING CDI, INFUSING INSULIN GTT @ 5 UNITS/HR FROM ER INSULIN GTT. SKIN INTACT, WARM/DRY TO TOUCH, SKIN CHECK WITH FRED RN AT BEDSIDE. OFFERRED PT URINAL AT BEDSIDE, NO URINE AT THIS TIME, NO PENILE DISCHARGE OR EDEMA NOTED. BED AT LOWEST SETTING, CALL LIGHT WITHIN REACH, HOB ELEVATED 30 DEGREES PER PT COMFORT. EDUCATED ON DIABETIC DIET AND INSULIN GTT. WILL CONT TO MONITOR.
[2019-12-25 22:35] VITALS: BP 122/89
--- NOTE | 2019-12-25 22:35 | NUR ---
INSULIN GTT CHANGED FROM 5 UNITS/HR FROM ER TO 0.1 UNITS/KG/HR PER [facility] DKA PROTOCOL, DR. GONZÁLES MADE AWARE.
[2019-12-25 23:05] VITALS: BP 121/93
--- NOTE | 2019-12-25 23:20 | NUR ---
NORMAL SALINE GTT INITIATED @ 200 ML/HR PER EMAR
--- NOTE | 2019-12-26 00:30 | NUR ---
DR. GONZÁLES MADE AWARE OF PT'S BLOOD SUGAR OF 160. INSULIN GTT TITRATED TO 0.05 UNITS/KG/HR AT THIS TIME. D5 1/2 NS WILL BE INITIATED PER MD ORDER.
--- NOTE | 2019-12-26 00:39 | NUR ---
D5 1/2 NS GTT INITIATED @ 150 ML/HR, CAN TITRATE BETWEEN 150-250 ML/HR TO KEEP BLOOD SUGAR BETWEEN 150-200.
--- NOTE | 2019-12-26 01:05 | NUR ---
BLOOD SUGAR 134, D5 1/2 NS GTT TITRATED TO 200 ML/HR TO KEEP BLOOD SUGAR BETWEEN 150-200.
[2019-12-26 01:08] LABS: CALCIUM 7.8 mg/dL (8.5-10.1); CARBON DIOXIDE 15.8 mmol/L (21-32); CHLORIDE SERUM 107 mmol/L (98-107); CREATININE SERUM 1.2 mg/dL (0.7-1.3); GFR1 > 60 mL/min; GLUCOSE SERUM 138 mg/dL (74-106); MAGNESIUM 2.2 mg/dL (1.8-2.4); PHOSPHOROUS 1.4 mg/dL (2.5-4.9); POTASSIUM SERUM 3.4 mmol/L (3.5-5.1); SODIUM SERUM 139 mmol/L (136-145)
[2019-12-26 03:09] VITALS: BP 113/69
[2019-12-26 05:50] LABS: CALCIUM 7.7 mg/dL (8.5-10.1); CARBON DIOXIDE 21.4 mmol/L (21-32); CHLORIDE SERUM 107 mmol/L (98-107); CREATININE SERUM 1.1 mg/dL (0.7-1.3); GFR1 > 60 mL/min; GLUCOSE SERUM 167 mg/dL (74-106); MAGNESIUM 2.1 mg/dL (1.8-2.4); PHOSPHOROUS 2.2 mg/dL (2.5-4.9); POTASSIUM SERUM 3.1 mmol/L (3.5-5.1); SODIUM SERUM 138 mmol/L (136-145)
--- NOTE | 2019-12-26 07:09 | NUR ---
GAVE REPORT TO TERESSA CONDE AND RADHA CONDE. UPDATES PROVIDED, QUESTIONS ANSWERED, ENDORSED CARE.
[2019-12-26 08:00] VITALS: BP 123/91
[2019-12-26 08:25] LABS: CALCIUM 7.7 mg/dL (8.5-10.1); CARBON DIOXIDE 23.2 mmol/L (21-32); CHLORIDE SERUM 106 mmol/L (98-107); CREATININE SERUM 1.1 mg/dL (0.7-1.3); GFR1 > 60 mL/min; GLUCOSE SERUM 139 mg/dL (74-106); MAGNESIUM 1.9 mg/dL (1.8-2.4); PHOSPHOROUS 2.2 mg/dL (2.5-4.9); POTASSIUM SERUM 3.2 mmol/L (3.5-5.1); SODIUM SERUM 136 mmol/L (136-145)
--- NOTE | 2019-12-26 09:30 | NUR ---
ANION GAP CLOSED X2, 0400= 9.6 & 0800=6.8, MD IZAGUIRRE & RESIDENT TEAM AT BEDSIDE, UPDATED ON PATIENTS STATUS, PER MD KALEIGH LARA AN ABD US, PT WILL BE NPO FROM [phone], US AWARE PT HAD BREAKFAST. PENDING ORDERS TO D/C INSULIN DRIP AND POSSIBLE TRANSFER
[2019-12-26 11:15] VITALS: BP 116/83
--- NOTE | 2019-12-26 13:44 | NUR ---
GAVE TRANSFER REPORT TO ELTON CELIS, ALL QUESTIONS ANSWERED, AND CARE ENDORSED.
--- NOTE | 2019-12-26 16:30 | NUR ---
PT WAS RECEIVED AROUND 1400, REPORT WAS GIVEN BY LORRAINE CONDE. PT IS SAUD X4, APOLONIA DOMINGUEZ. IV ON THE RIGHT FOREARM, RUNNING K RIDER NOW. BEDSIDE ULTRASOUND DONE. WILL CONTINUE TO MONITOR PATIENT.
[2019-12-26 17:07] VITALS: BP 121/89
--- NOTE | 2019-12-26 17:49 | NUR ---
PT'S BLOOD GLUCOSE BEFORE DINNER IS 234, AND PT IS NOT ON SLIDING SCALE. PAGED AND CONFIRMED NO SLIDING SCALE NEEDED AT THE MOMENT, WILL CONTINUE TO MONITOR PT'S BLOOD GLUCOSE.
[2019-12-26 21:41] VITALS: BP 117/81
[2019-12-27 05:11] VITALS: BP 108/68
[2019-12-27 07:52] LABS: BASOPHIL % 0.5 % (0-2); PLATELET COUNT 287 x10^3mcL (130-400); RED CELL DISTRIBUTION WIDTH 13.4 % (11.5-14.5)
--- NOTE | 2019-12-27 08:23 | NUR ---
AT 0740 - RECEIVED PATIETN FROM NIGHT NURSE. SLEEPING. RESPIRATIONS REGULAR. MONITOR SHOWING SINUS RHYTHM; RATE 80. IV INFUSING NS AT 100 ML/HR AT 0810 - AWAKE, ALERT AND ORIENTED. SITTING UP INB ED EATING BREAKFAST.
--- NOTE | 2019-12-27 10:39 | NUR ---
SEEN BY DR IZAGUIRRE AND MEDICAL TEAM DOCTORS. DOCTORS SPOKE WITH PATIENT ABOUT PLAN FOR NEW INSULIN REGEME AND THE IMPORTANCE OF PATIENT EATING 3 MEALS A DAY WITH THAT PROGRAM. TO STAY IN HOSPITAL TODAY FOR MEDICATION ADJUSTMENT.
[2019-12-27 11:52] LABS: CALCIUM 6.3 mg/dL (8.5-10.1); CARBON DIOXIDE 25.4 mmol/L (21-32); CHLORIDE SERUM 107 mmol/L (98-107); CREATININE SERUM 0.5 mg/dL (0.7-1.3); GFR1 > 60 mL/min; GLUCOSE SERUM 76 mg/dL (74-106); SODIUM SERUM 140 mmol/L (136-145)
[2019-12-27 11:58] LABS: POTASSIUM SERUM 2.6 mmol/L (3.5-5.1)
--- NOTE | 2019-12-27 12:38 | NUR ---
AT 1150 -RECEIVED CALL FROM [facility] WITH K LEVEL OF 2.6 K-RIDER HAS BEEN ORDERED PENDING WITH PHARMACY AWAITING RESULTS. SPOKE WITH PHARMACIST WHO WILL NOW SCHEDULE K-RIDER.
--- NOTE | 2019-12-27 13:31 | NUR ---
STATUS CHANGED TO MED-SURG. PATIENT TAKEN OFF CARDIAC MONITORING. COMMENCED 40 MEQ K-RIDER FOR K+ LEVEL OF 2.6 TO INFUSE OVER 4 HRS.
[2019-12-27 15:30] VITALS: BP 107/69
--- NOTE | 2019-12-27 16:00 | NUR ---
SEEN BY DIETITIAN. SHE WILL SPEAK WITH DR VILLASENOR REGARDING RECOMMENDATIONS.
--- NOTE | 2019-12-27 17:06 | NUR ---
Initial Nutrition Assessment- Dago Lundberg, RM 258B, HR Dx: DKA PMHx: DM type 1 PSHx: none Labs: (12/25): glu: 139H, P: 2.2L, albumin (12/24): 2.8L, ALK PH: 434H(12/24), amylase: 116H (12/24), A1C: 13.3H (12/24), WBC: 4.4L, H/H: 8.7/26L Meds: Colace, KCL, NaCl 1000 mL Q10H, Tylenol, zofran Diet: CCHO PO Intakes: no nutrition flowsheets available Ht: 68 inches, 5 ft 8 inch Wt: 106.92 lbs/48.6 kg BMI: 16.6 (underweight) IBW: 154 %IBW: 69% UBW: 120-125 lbs Age: 19 Food Allergies: NKFA Skin: intact Jacob: 19 Edema: none GI: last BM 12/24/[address] RD Note (12/27/19): Per H&P DKA, pseudohyponatremia, transaminitis, severe protein calorie malnutrition Upon visit, pt was awake in bed, speaking to someone on his cell phone. Pt agreed to speak with me and answer a few questions. Pt reported a good appetite, but he said the portions are small. Pt was requesting large portions. Pt reported wt loss of 13-18 lbs recently and said it was from having diabetes. When asked if he had been eating less, pt reported he is eating the same amount as before. Wt loss may be due to fluid loss and muscle breakdown from blood sugar being too high/uncontrolled DM1. Problem with: N/V/D/C: none per pt Problems with: Chewing/Swallowing: none per pt Current appetite: good per pt Recent wt changes: -13-18 lbs from admit wt %wt change: -14.4% Vitamin/Supplement: none Special Diet at Home: none Physical activity: no Education: came back to pt's rm to give nutrition education, pt was on his cell phone, left DM1 nutrition therapy handout + healthy eating handout at bedside, pt acknowledged Estimated Nutritional Needs Based on ABW of 106.92 lbs/48.6 kg Energy: 1458- 1701 kcal/d (30-35 kcal/kg for repletion) Protein: 73- 97 (1.5-2.0 g/kg for repletion) Fluid: 1458-1701mL/day (30-35 mL/kg) Nutrition Diagnosis 1) Altered nutrition related lab values related to uncontrolled DM1 as evidenced by elevated glucose levels, glucose level upon admit= 530, A1C= 13.3H on 12/25/2019 2) Underweight related to uncontrolled DM1 (fluid loss, muscle loss) as evidenced by BMI= 16.6, observed moderate muscle loss in clavicle & patellar (quadricep) region Intervention/RDN Recommendation(s): 1) Continue CCHO diet 2) Recommend large portions per pt's request 3) Recommend glucerna QD in AM with breakfast 4) Monitor ONS intake, PO intake of meals- RD will follow up if any additional glucerna oral supplements will be needed Gave recommendation to resident cell phone, awaiting response Monitor/Evaluate Goal: have pt meet at least 75% of estimated nutrition needs (---, ongoing), improved glucose levels Monitor: large portion implementation, ONS intake, PO intake, Labs, Skin integrity, Weights. F/U HR days on 12/28-
--- NOTE | 2019-12-27 18:37 | NUR ---
K-RIDER HAS BEEN COMPLETED. IV NOW INFUSING NS AT 100ML/HR. PATIENT TOLERATING CCHO DIET. GOOD APPETITE. BLOOD GLUCOSE LEVELS = 208 & 175. COVERED WITH REGULAR INSULIN PER SLIDING SCALE. WILL ENDORSE CARE TO NIGHT NURSE.
[2019-12-27 21:08] VITALS: BP 128/93
--- NOTE | 2019-12-28 03:01 | NUR ---
12/27/20191999 Received patient awake, alert and oriented times four lying in bed in low lu's position. Able to follow commands. Able to verbalize wishes and concerns. Vital signs taken and recorded-all parameters were within normal limits. Bedside care done. Physical assessment done and completed. Not in any acute distress or pain. Will continue to monitor.
--- NOTE | 2019-12-28 03:03 | NUR ---
0030 Resting with eyes closed. Siderails up times two. Call light in reach. Will continue to monitor.
[2019-12-28 05:59] VITALS: BP 148/93
[2019-12-28 07:22] LABS: BASOPHIL % 0.3 % (0-2); PLATELET COUNT 369 x10^3mcL (130-400); RED CELL DISTRIBUTION WIDTH 13.2 % (11.5-14.5)
[2019-12-28 07:40] LABS: CALCIUM 7.5 mg/dL (8.5-10.1); CARBON DIOXIDE 32.6 mmol/L (21-32); CHLORIDE SERUM 101 mmol/L (98-107); CREATININE SERUM 0.5 mg/dL (0.7-1.3); GFR1 > 60 mL/min; GLUCOSE SERUM 74 mg/dL (74-106); MAGNESIUM 2.1 mg/dL (1.8-2.4); PHOSPHOROUS 3.3 mg/dL (2.5-4.9); SODIUM SERUM 137 mmol/L (136-145)
[2019-12-28 08:15] VITALS: BP 120/79
--- NOTE | 2019-12-28 09:41 | NUR ---
UPDATE NOTES PT IS AWAKE AND ALERT AND IN A STABLE CONDITION WITH NO SIGNS OF ANY PAIN OR DISTRESS NOTED. POTASSIUM IS 3.0 AND REPLACED WITH 40 MeQ PO ALONG WITH AN ADDITIONAL 40 MeQ VIA IV. PT IS ON ROOM AIR WITH GOOD SATURATION, BED IS IN LOW POSITION WITH CALL LIGHT IN REACH. ALL INTERVENTIONS CARRIED OUT PER PROTOCOL. WILL CONTINUE TO MONITOR.
[2019-12-28 10:19] LABS: BASOPHIL % 0.3 % (0-2); PLATELET COUNT 304 x10^3mcL (130-400); RED CELL DISTRIBUTION WIDTH 13.2 % (11.5-14.5)
[2019-12-28 14:22] LABS: CALCIUM 8.6 mg/dL (8.5-10.1); CARBON DIOXIDE 31.3 mmol/L (21-32); CHLORIDE SERUM 99 mmol/L (98-107); CREATININE SERUM 0.9 mg/dL (0.7-1.3); GFR1 > 60 mL/min; GLUCOSE SERUM 239 mg/dL (74-106); POTASSIUM SERUM 4.5 mmol/L (3.5-5.1); SODIUM SERUM 134 mmol/L (136-145)
[2019-12-28] MEDS ORDERED: LANTI SQ (14:36)
[2019-12-28 15:32] VITALS: BP 120/79
== END 2019-12-28 16:10 | disposition home or self-care (01) | DRG 420 ==
LOC: ED 14:36 → IC 16:56 → DU 12-26 14:00 → MU 12-27 13:20
PROVIDERS: Emergency Medicine; ADMIT Family Medicine; ATTEND Family Medicine
DX: E10.10 Type 1 diabetes mellitus with ketoacidosis without coma (principal); E43 Unspecified severe protein-calorie malnutrition; E87.1 Hypo-osmolality and hyponatremia; Z83.3 Family history of diabetes mellitus; Z68.1 Body mass index [BMI] 19.9 or less, adult; D18.03 Hemangioma of intra-abdominal structures
CPT/HCPCS: 82962; G0378; J1815; J2405; J3480; J7030; J7042; Q0092

== ENCOUNTER 2020-02-23 13:32 | Emergency (ER) | payer OTHER ==
[~2020-02-23] VITALS: Ht 172.7 cm; Wt 48.5 kg
[~2020-02-23 13:32] MED LIST changes: +NOVI SQ
[2020-02-23 13:49] VITALS: Ht 172.7 cm; Wt 48.5 kg
[2020-02-23 14:40] LABS: BASOPHIL % 0.3 % (0-2); PLATELET COUNT 298 x10^3mcL (130-400); RED CELL DISTRIBUTION WIDTH 13.9 % (11.5-14.5)
[2020-02-23 15:01] LABS: CALCIUM 10.7 mg/dL (8.5-10.1); CHLORIDE SERUM 98 mmol/L (98-107); CREATININE SERUM 1.4 mg/dL (0.7-1.3); GFR1 > 60 mL/min; GLUCOSE SERUM 274 mg/dL (74-106); POTASSIUM SERUM 3.7 mmol/L (3.5-5.1); SODIUM SERUM 136 mmol/L (136-145)
[2020-02-23 15:05] LABS: ALBUMIN 3.7 g/dL (3.4-5.0); ALKALINE PHOSPHATASE 241 U/L (46-116); ALT/SGPT 51 U/L (16-63); AST/SGOT 23 U/L (15-37); BILIRUBIN TOTAL 0.4 mg/dL (0.20-1.00)
[2020-02-23 15:06] LABS: TOTAL PROTEIN, SERUM 8.7 g/dL (6.4-8.2)
[2020-02-23 15:20] LABS: UA SPECIFIC GRAVITY <=1.005 (1.005-1.035); microscopic required? YES; urine erythrocyte 1+ (NEGATIVE)
[2020-02-23 17:15] VITALS: BP 119/80
== END 2020-02-23 17:15 | disposition home or self-care (01) ==
LOC: ED 13:32
PROVIDERS: Emergency Medicine
DX: E10.65 Type 1 diabetes mellitus with hyperglycemia (principal); E86.0 Dehydration; E10.22 Type 1 diabetes mellitus with diabetic chronic kidney disease; N18.9 Chronic kidney disease, unspecified
CPT/HCPCS: 82962; J7030